=== PATIENT | male | born 1985 | race Caucasian/White ===

== ENCOUNTER 2017-07-12 19:40 | Emergency (ER) | payer SELFPAY ==
[2017-07-12 20:39] VITALS: BP 122/74
[2017-07-12] MEDS ORDERED: Amoxicillin/Clavulanate TAB* 875 MG PO ONE (20:46)
[2017-07-12] MEDS ORDERED: Neomyc/Polym/HC 1% OTIC SUSP* **OTIC LEFT EAR ONE (20:47)
--- NOTE | 2017-07-12 20:48 | UC ---
Ear Complaint HPI - HPI Summary HPI Summary: 31 YEAR OLD MALE PRESENTS WITH COMPLAINS OF SEVERE LEFT EAR PAIN. - History of Current Complaint Chief Complaint: UCEar Stated Complaint: LEFT EAR COMPLAINT Time Seen by Provider: 07/12/17 20:34 Hx Obtained From: Patient Onset/Duration: Sudden Onset Severity Initially: Moderate Severity Currently: Moderate Pain Scale Used: 0-10 Numeric - 7 Associated Signs/Symptoms: Positive: Foreign Body Sensation - Allergies/Home Medications Allergies/Adverse Reactions: Allergies Allergy/AdvReac Type Severity Reaction Status Date / Time No Known Allergies Allergy Verified 07/12/17 20:38 Home Medications: Home Medications Acetaminophen [Acetaminophen Extra Stren] 1,500 mg PO ONCE PRN 07/12/17 [ History Confirmed 07/12/17] PMH/Surg Hx/FS Hx/Imm Hx Previously Healthy: Yes - Surgical History Surgical History: None - Family History Known Family History: Positive: None - Social History Alcohol Use: None Substance Use Type: None Smoking Status (MU): Never Smoked Tobacco Review of Systems Constitutional: Negative Skin: Negative Eyes: Negative ENT: Ear Ache Respiratory: Negative Cardiovascular: Negative Gastrointestinal: Negative Genitourinary: Negative Motor: Negative Neurovascular: Negative Musculoskeletal: Negative Neurological: Negative Psychological: Negative All Other Systems Reviewed And Are Negative: Yes Physical Exam Triage Information Reviewed: Yes Vital Signs: Initial Vital Signs Temp 36.7 C 07/12/17 20:33 Pulse 53 07/12/17 20:33 Resp 16 07/12/17 20:33 BP 122/74 07/12/17 20:33 Pulse Ox 99 07/12/17 20:33 Eye Exam: Normal ENT Exam: Normal ENT: Positive: TM bulging, TM red Dental Exam: Normal Neck exam: Normal Neck: Positive: 1 Respiratory Exam: Normal Cardiovascular Exam: Normal Abdominal Exam: Normal Musculoskeletal Exam: Normal Neurological Exam: Normal Psychological Exam: Normal Skin Exam: Normal Ear Complaint Course/Dx - Differential Dx/Diagnosis Provider Diagnoses: LEFT EAR PAIN. LEFT EAR AOM Discharge - Discharge Plan Condition: Stable Disposition: HOME Prescriptions: Amoxicillin/Clavulanate TAB* [Augmentin TAB 875*] 875 mg PO BID #20 tab Patient Education Materials: Earache (ED) Referrals: No Primary Care Phys,NOPCP [Primary Care Provider] -
== END 2017-07-12 21:27 | disposition home or self-care (01) ==
LOC: UCCORT 19:40
DX: H66.002 Acute suppurative otitis media without spontaneous rupture of ear drum, left ear (principal)
CPT/HCPCS: 99203; A9270-GY; G0463